=== PATIENT | female | born 1980 | race Caucasian/White ===

== ENCOUNTER 2021-02-18 10:17 | Outpatient (CLI) | payer BC, SELFPAY ==
[2021-02-18 11:26] LABS: HIV 1/2 Ab P24 Ag Result Negative (Negative)
[2021-02-18 11:47] LABS: Hepatitis C Virus Antibody Negative (Negative)
[2021-02-19 08:26] LABS: Rapid Plasma Reagin Non-Reactive (NonReactive)
[2021-02-22 15:02] LABS: HSV 1 IgM Screen Negative (Negative); HSV 2 IgM Screen Positive (Negative)
[2021-02-22 15:34] LABS: HSV 2 IgM Titer 1:20 (<1:20)
== END 2021-02-18 10:18 | disposition home or self-care (01) ==
PROVIDERS: Visit Provider Student in an Organized Health Care Education/Training Program
DX: Z20.2 Contact with and (suspected) exposure to infections with a predominantly sexual mode of transmission (principal)
CPT/HCPCS: 36415; 86592; 86695; 86696; 86703; 86803; G0432